=== PATIENT | male | born 1960 | race Asian ===

== ENCOUNTER 2024-07-28 15:11 | Emergency (ER) | payer OTHER, SELFPAY ==
[2024-07-28 15:14] VITALS: BP 127/79; BMI 28.2
--- NOTE | 2024-07-28 15:31 | ED.GENMED ---
History of Present Illness
General
Chief Complaint: Musculo-Skeletal Complaint
Source: patient
Exam Limitations: none
Time Seen by Provider: 07/28/24 15:15
Nursing documentation reviewed up to this point in time: agreed with
History of Present Illness
History of Present Illness:
64-year-old male presents to the ER via EMS. Patient was in his backyard doing yard work when he rolled his left ankle. Another person was working at his house was able to help him to his house while sitting in his chair he felt very lightheaded
and fell like he was in a pass out had a syncopal episode witnessed by daughter. He reports this has happened in the past when he injured his back. He did not fall out of his chair he denies hitting his head. He complains of pain to the left
lateral ankle. He has not taken anything for pain. He denies any other injuries.
Review of Systems
Review of Systems
Allergies reviewed?: Yes
All Other Systems: ROS reviewed and negative except as documented in HPI and ROS
Constitutional: Reports no symptoms
Respiratory: Reports no symptoms
Cardiac: Reports syncope; Denies chest pain, diaphoresis or palpitations
ABD/GI: Reports no symptoms; Denies abdominal pain, nausea or vomiting
: Reports no symptoms
Musculoskeletal: Reports other (left lateral ankle pain )
Skin: Reports no symptoms
Hematologic/Lymphatic: Reports no symptoms
Psychiatric: Reports no symptoms
Phy Exam
General Physical Exam
General Presentation: no apparent distress
General age: appears stated age
General Skin: warm and dry
General Habitus: normal
General Mental: alert
General Hydration: appears well hydrated
Cardiovascular Exam
Cardiovascular Exam: regular rate/rhythm, no murmur and normal peripheral pulses
Pulmonary Exam
Pulmonary Exam: lungs clear and no respiratory distress
Neurological Exam
Neurological Exam: alert and oriented x3
Musculoskeletal Exam
Musculoskeletal Exam: other (Left lower extremity strong pulses mild swelling to left lateral malleolus with mild tenderness no proximal tib-fib tenderness; no bony foot tenderness )
Skin Exam
Skin Exam: normal color and warm/dry
Psychiatric Exam
Psychiatric Exam: normal mood/affect
Course
Orders/Labs/Results
Orders:
Orders
07/28/24 15:24
Cardiac Monitoring- Treatment ONCE
0.9% Sodium Chloride 1000 ml [Nss] 1,000 ml IV BOLUS
Ankle, left 3 view CR [CR Ankle - Left Min 3 Views ] Urgent
Comment:
Reason For Exam: injury
07/28/24 15:25
Electrocardiogram (*1) Stat
Reason for Study: Abdominal Pain
EKG- Treatment ONCE
07/28/24 15:31
Complete Blood Count/With Diff Urgent
Comprehensive Metabolic Panel Urgent
07/28/24 15:58
Ibuprofen [Motrin] 600 mg PO NOW STA
Abnormal Lab Results
07/28/24
15:31
RBC 4.34 L 10^6/uL
(4.70-6.10)
Hgb 12.8 L g/dL
(13.0-18.0)
Hct 37.3 L %
(39.0-52.0)
Absolute Lymphs (auto) 3.6 H 10^3/uL
(1.2-3.4)
Neutrophils % 40.2 L %
(42.2-75.2)
Glucose 111 H mg/dl
(70-99)
07/28/24 15:31
07/28/24 15:31
Vital Signs
Initial and Last Documented VS:
Initial Vital Signs
Temp Pulse Resp BP Pulse Ox
98.3 F 67 18 127/79 100
07/28/24 15:14 07/28/24 15:14 07/28/24 15:14 07/28/24 15:14 07/28/24 15:14
Last Documented Vital Signs
Temp Pulse Resp BP Pulse Ox
98.3 F 67 18 127/79 100
07/28/24 15:14 07/28/24 15:14 07/28/24 15:14 07/28/24 15:14 07/28/24 15:14
MDM/Problems Addressed
Differential Diagnosis Includes:
Not limited to ankle sprain wrist fracture, vasovagal episode syncope
MDM/Problems Addressed:
Patient is a 64-year-old male that rolled his left ankle prior to arrival and shortly after was sitting in a chair and felt lightheaded and had a syncopal episode. He reports this happened in the past when he had acute injury and pain. He denies
any associated chest pain. He presents awake alert no acute distress denies any dizziness. He complains of left ankle/lateral discomfort. He denies any lightheadedness presently. He drank several cups of water prior to arrival. Patient presents
awake alert no acute distress no obvious fracture on x-ray symptoms are consistent with ankle sprain. Patient likely had a vagal response EKG is normal labs unremarkable vital signs are stable. Will plan for discharge with Logan wrap and Aircast
with close out pt f /u with pcp/ortho as needed .
Patient ambulated with logan wrap here in the ED
*Pulse Oximetry
Patient hypoxic: no
*EKG
Interpreted by ED Provider?: Yes
Interpretation: normal
Heart Rate: 61
Rate: normal
Rhythm: sinus
Ischemia: no ischemia
*Critical Care Note
Total Time (30-74mins, 75-104mins- exclusive of procedures): Not Applicable
ED Attending Note
-
Portions of this chart may have been created with voice recognition software.� Occasional wrong word or��sound alike� substitutions may have occurred due to the inherent limitations of voice recognition software.
Discharge Plan
Departure
Patient Disposition: Home (Routine Discharge)
Date of Disposition: 07/28/24
Time of Disposition: 17:03
Patient with high blood pressure during this ER visit?: No
Condition: Fair
Covid-19: Not Applicable
Discharge Problem:
Ankle sprain, Vasovagal episode
Instructions: Vasovagal Response (DC), Ankle Sprain ED
Referrals:
Lawrence Renteria MD [Active] -
UNKNOWN - PT DOES,NOT KNOW [Family Provider] -
Activity Restrictions/Additional Instructions:
As discussed keep ankle elevated as much as possible and rest as much as possible over the next several days. Ice the affected area over the next 24 hours 20 minutes at a time several times a day. Wear Logan wrap for support throughout the day but
remove at night while sleeping. Follow-up with your family doctor the next 2 days for reevaluation and orthopedics if needed. You may take ibuprofen every 8 hours as needed.
In addition to ankle sprain it is likely that you had a vasovagal episode from pain your labs and EKG were unremarkable here in the ER
Interventions
Interventions:
*Risk Screen - Suicide Last Done: 07/28/24 15:17
*General Assessment Last Done: 07/28/24 15:17
*Neglect/Abuse Screening Last Done: 07/28/24 15:17
*ED COVID-19 Vaccine History Last Done: 07/28/24 15:17
Discharge Date and Time
Print Language: MALAYSIAN
[2024-07-28 15:40] LABS: % Basophils 0.4 % (0-2); % Immature Granulocytes 0.3 % (0-0.5); % Lymphocytes 47.7 % (20.5-51.1); % Monocytes 6.4 % (1.7-9.3); % Neutrophils 40.2 % (42.2-75.2); Absolute Eosinophils 0.4 10^3/uL (0-0.7); Absolute Lymphocytes 3.6 10^3/uL (1.2-3.4); Absolute Monocytes 0.5 10^3/uL (0.1-0.6); Hematocrit 37.3 % (39.0-52.0); Hemoglobin 12.8 g/dL (13.0-18.0); Mean Corp Hgb Conc. 34.3 g/dL (33.0-37.0); Mean Corpuscular Hgb 29.5 pg (27.0-31.0); Mean Corpuscular Volume 85.9 fL (80.0-94.0); Mean Platelet Volume 9.8 fL (7.4-10.4); Nucleated Red Blood Cells % 0 % (-); Platelet Count 183 10^3/uL (130-400); Red Blood Cell Count 4.34 10^6/uL (4.70-6.10); White Blood Cell Count 7.6 10^3/uL (4.8-10.8)
[2024-07-28 15:53] LABS: ALT (SGPT) 23 U/L (0-50); AST (SGOT) 26 U/L (17-59); Alkaline Phosphatase 55 U/L (38-126); Blood Urea Nitrogen 11 mg/dl (9-20); Calcium 9.2 mg/dl (8.4-10.2); Carbon Dioxide 25 mmol/L (22-30); Chloride 103 mmol/L (98-107); Estimated Creatinine Clearance 83 ml/min; Glucose 111 mg/dl (70-99); Potassium 4.2 mmol/L (3.5-5.1); Sodium 139 mmol/L (135-145); Total Bilirubin 0.3 mg/dl (0.2-1.3); Total Protein 6.7 g/dl (6.3-8.2); eGFR > 60.00
[2024-07-28 16:00] VITALS: BP 126/92
[2024-07-28] MEDS: MOTRIN 600 MG PO (16:03)
== END 2024-07-28 17:33 | disposition home or self-care (01) ==
LOC: EMR 15:11
PROVIDERS: Nurse Practitioner; EMERGENCY PHYSICIAN Emergency Medicine
DX: S93.402A Sprain of unspecified ligament of left ankle, initial encounter (principal); R55 Syncope and collapse; W19.XXXA Unspecified fall, initial encounter
CPT/HCPCS: 99283; 73610; 80053; 85025; 93005